=== PATIENT | female | born 1945 | race Caucasian/White ===

== ENCOUNTER 2018-09-05 06:25 | Day surgery (SDC) | payer OTHER ==
[~2018-09-05 06:25] MED LIST: COZAAR100 MG PO; FOLIC ACID1 MG PO; FOSAMAX70 MG PO; GLYCOTROL CAPS1 EACH PO; MEDROL4 MG PO; METROTEXATE PO
[2018-09-05] MEDS ORDERED: PERCOCET 5-3251 EACH PO (10:09)
== END 2018-09-05 12:57 | disposition home or self-care (01) ==
LOC: CIR.AMB 06:25
DX: D35.1 Benign neoplasm of parathyroid gland (principal)